=== PATIENT | female | born 1990 | race Two or more races ===

== ENCOUNTER 2021-08-13 11:58 | Emergency (ER) | payer OTHER ==
[~2021-08-13] VITALS: Ht 152.4 cm; Wt 62.1 kg
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
[2021-08-13] MEDS ORDERED: LORAZEPAM INJ 2 MG/ML VIAL ONE (12:19)
--- NOTE | 2021-08-13 12:24 | NUR ---
DR BEAR AT BEDSIDE
[2021-08-13] MEDS ORDERED: LORA-259 PO (12:29)
[2021-08-13] MEDS ORDERED: LORAZEPAM INJ 2 MG/ML VIAL IM ONE (12:30)
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
--- NOTE | 2021-08-13 12:49 | NUR ---
Patient discharged to home in stable condition. Written and verbal after care instructions given. Patient verbalizes understanding of instruction.
[2021-08-13 12:50] VITALS: BP 116/78
== END 2021-08-13 12:50 | disposition home or self-care (01) ==
LOC: ER 12:06
DX: F41.9 Anxiety disorder, unspecified (principal); Z79.899 Other long term (current) drug therapy
CPT/HCPCS: 96372; 99283; J2060